=== PATIENT | female | born 1990 | race Caucasian/White ===

== ENCOUNTER → 2023-10-17 14:32 | Outpatient (REF) | payer OTHER, SELFPAY | LOC: PNTC 14:32 | PROVIDERS: ATTENDING PHYSICIAN Obstetrics & Gynecology | DX: Z36.0 Encounter for antenatal screening for chromosomal anomalies (principal); Z36.82 Encounter for antenatal screening for nuchal translucency | CPT/HCPCS: 76801; 76813 ==

== ENCOUNTER → 2023-12-15 14:47 | Outpatient (REF) | payer OTHER, SELFPAY | LOC: PNTC 14:47 | PROVIDERS: ATTENDING PHYSICIAN Obstetrics & Gynecology | DX: O09.529 Supervision of elderly multigravida, unspecified trimester (principal) | CPT/HCPCS: 76811 ==

== ENCOUNTER → 2024-03-05 09:17 | Outpatient (REF) | payer OTHER, SELFPAY | LOC: PNTC 09:17 | PROVIDERS: ATTENDING PHYSICIAN Obstetrics & Gynecology | DX: O09.529 Supervision of elderly multigravida, unspecified trimester (principal) | CPT/HCPCS: 76816 ==

== ENCOUNTER 2024-04-25 03:47 | Inpatient (IN) | payer OTHER, SELFPAY ==
[2024-04-25 03:56] VITALS: BMI 28.4
[2024-04-25 04:10] VITALS: BP 106/68
[2024-04-25] MEDS: LR 1000 IV ×2 (04:34→06:21)
[2024-04-25] MEDS: PENICILLIN 110 UNITS IV (04:38)
[2024-04-25 04:51] LABS: % Basophils 0.5 % (0-2); % Eosinophils 0.9 % (0-6); % Immature Granulocytes 1.2 % (0-0.5); % Monocytes 7.8 % (1.7-9.3); % Neutrophils 58.6 % (42.2-75.2); Absolute Eosinophils 0.1 10^3/uL (0-0.7); Absolute Immature Granulocytes 0.1 10^3/uL (0-0.05); Absolute Lymphocytes 2.1 10^3/uL (1.2-3.4); Absolute Monocytes 0.5 10^3/uL (0.1-0.6); Absolute Neutrophils 3.9 10^3/uL (1.4-6.5); Hematocrit 33.9 % (37.0-47.0); Hemoglobin 11.9 g/dL (12.0-16.0); Mean Corp Hgb Conc. 35.1 g/dL (33.0-37.0); Mean Corpuscular Hgb 29.5 pg (27.0-31.0); Mean Corpuscular Volume 84.1 fL (81.0-99.0); Mean Platelet Volume 10.6 fL (7.4-10.4); Nucleated Red Blood Cells % 0 %; Platelet Count 154 10^3/uL (130-400); Red Blood Cell Count 4.03 10^6/uL (4.20-5.40); Red Cell Dist. Width 13.4 % (11.5-14.5); White Blood Cell Count 6.7 10^3/uL (4.8-10.8)
[2024-04-25] MEDS: FENTANYL/BUPIVACAINE 100 EPIDURAL (06:02)
[2024-04-25] MEDS: SUBLIMAZE 100 MCG EPIDURAL (06:02)
[2024-04-25] MEDS: PENICILLIN 55 UNITS IV (08:13)
[2024-04-25] MEDS: PITOCIN 30 UNITS/NSS 500 ML IV (08:59)
[2024-04-25] MEDS: MOTRIN 600 MG PO ×2 (13:00→20:05)
[2024-04-25] MEDS: SYNTHROID PO (13:06)
[2024-04-25] MEDS: TYLENOL 650 MG PO (21:06)
[2024-04-26] MEDS: TYLENOL 650 MG PO ×2 (03:59→08:32)
[2024-04-26] MEDS: MOTRIN 600 MG PO ×2 (03:59→16:53)
[2024-04-26 04:43] LABS: Hematocrit 32.8 % (37.0-47.0); Hemoglobin 11.7 g/dL (12.0-16.0)
[2024-04-26] MEDS: SYNTHROID 25 MCG PO (05:49)
[2024-04-26] MEDS: PRENATAL PLUS 1 TABLET PO (08:32)
[2024-04-27] MEDS: MOTRIN 600 MG PO (06:00)
[2024-04-27] MEDS: SYNTHROID 25 MCG PO (06:00)
[2024-04-27] MEDS: PRENATAL PLUS 1 TABLET PO (08:16)
[2024-04-27 11:52] LABS: Syphilis/T. pallidum Ab Reflex Negative (Negative)
== END 2024-04-27 11:40 | disposition home or self-care (01) | DRG 807 ==
LOC: LDRP 03:47
PROVIDERS: Obstetrics & Gynecology; ADMITTING PHYSICIAN Obstetrics & Gynecology; FAMILY PHYSICIAN Internal Medicine
PROC: 10E0XZZ Delivery of Products of Conception, External Approach (ICD-10-PCS; 2024-04-25)
PROC: 0HQ9XZZ Repair Perineum Skin, External Approach (ICD-10-PCS; 2024-04-25)
DX: O42.02 Full-term premature rupture of membranes, onset of labor within 24 hours of rupture (principal); Z37.0 Single live birth; O70.0 First degree perineal laceration during delivery; O99.824 Streptococcus B carrier state complicating childbirth; Z3A.39 39 weeks gestation of pregnancy; O99.284 Endocrine, nutritional and metabolic diseases complicating childbirth; E20.9 Hypoparathyroidism, unspecified; Z79.890 Hormone replacement therapy; Z83.3 Family history of diabetes mellitus; Z82.49 Family history of ischemic heart disease and other diseases of the circulatory system; Z82.3 Family history of stroke; Z80.3 Family history of malignant neoplasm of breast; Z80.0 Family history of malignant neoplasm of digestive organs
CPT/HCPCS: 36415; 85014; 85018; 85025; 86780; 86850; 86900; 86901